=== PATIENT | male | born 1940 | race Caucasian/White ===

== ENCOUNTER 2016-10-11 07:23 | Day surgery (SDC) | payer MEDICARE, BC ==
[2016-10-11] MEDS ORDERED: GLUCOPHAGE1000 MG PO (09:05)
[2016-10-11] MEDS ORDERED: PRAVACHOL40 MG PO (09:06)
[2016-10-11] MEDS ORDERED: HCTZ25 MG PO (09:06)
[2016-10-11] MEDS ORDERED: METOPROLOL TART50 MG PO (09:06)
[2016-10-11] MEDS ORDERED: COUMADIN5 MG PO (09:07)
[2016-10-11] MEDS ORDERED: ULTRAM50 MG PO (09:07)
[2016-10-11] MEDS ORDERED: STOOL SOFTENER100 M1 PO (09:08)
[2016-10-11] MEDS ORDERED: FISH OIL 1,0001 CA1 PO (09:08)
[2016-10-11] MEDS ORDERED: VITAMIN B-121000 MCG PO (09:09)
[2016-10-11 09:46] LABS: BASOPHILS 0.3 % (0-2); EOSINOPHILS 2.1 % (0-7); HEMATOCRIT 20.2 % (42.0-54.0); IMMATURE GRANULOCYTES 0.3 % (0-5); LYMPHOCYTES 58.6 % (15-50); MCHC 32.7 g/dL (31.0-37.0); MCV 94.8 fL (80.0-100.0); MEAN PLATELET VOLUME 12.9 fL (7.4-10.4); MONOCYTES 16.4 % (2-11); NEUTROPHILS 22.3 % (40-80); PLATELET COUNT 197 10x3/uL (130-400); RBC 2.13 10x6/uL (4.20-6.10); RDW 19.8 % (11.5-14.5); WBC 11.5 10x3/uL (4.8-10.8)
[2016-10-11 10:03] LABS: CALC OSMOLALITY 280 mosm/kg (275-300); CALCIUM 8.2 mg/dL (8.5-10.1); CARBON DIOXIDE 31.1 mmol/L (21.0-32.0); CHLORIDE - SERUM 103 mmol/L (98-107); CREATININE - SERUM 0.8 mg/dL (0.6-1.3); GLUCOSE 93 mg/dL (74-106); POTASSIUM - SERUM 4.6 mmol/L (3.5-5.1); SODIUM 139 mmol/L (136-145); UREA NITROGEN 20 mg/dL (7-18); eGFR NON AFRICAN AMERICAN > 90 mL/min (90-120)
[2016-10-11 10:11] LABS: HEMOGLOBIN 6.6 g/dL (13.5-17.5)
--- NOTE | 2016-10-12 16:20 | OP ---
PATIENT NAME: LIAM TOMAS MEDICAL RECORD: [id number] :40 LOCATION:[facility] ADMISSION DATE: SURGEON: ZHEN LOPEZ DO DATE OF OPERATION: 10/11/2016 PROCEDURE: EGD. INDICATIONS FOR PROCEDURE: Anemia with a history of gastric and duodenal AVMs as well as a history of chronic lymphocytic leukemia. SCOPE: Olympus video gastroscope. MEDICATIONS: Propofol 150 mg IV per anesthesia. ESTIMATED BLOOD LOSS: None. COMPLICATIONS: None. FINDINGS: Informed consent was given. The patient was made comfortable with the above medication. After reaching an adequate level of sedation by slow IV push, the patient was placed on his left side. The endoscope was advanced under direct visualization through the mouth to the third portion of the duodenum. The upper, middle, and lower thirds of the esophagus appeared normal. At the GE junction, there was mild LA class A reflux-induced esophagitis. The endoscope was advanced beyond the GE junction into the stomach and retroflexed to view the cardia, where a small sliding hiatal hernia was present. In the fundus and body of the stomach, there were a few benign appearing fundic gland type polyps. The antrum and prepyloric region of the stomach appeared normal, without evidence of AVMs, ulcers, or other abnormalities. The endoscope was advanced beyond the pylorus into the duodenum where the bulb, first portion, second portion, and third portion appeared normal. The scope was withdrawn from the patient. The patient tolerated the procedure well and there were no complications. IMPRESSION: 1. LA class A reflux-induced esophagitis. 2. Small sliding hiatal hernia. 3. Benign appearing fundic gland type gastric polyps. PLAN AND RECOMMENDATIONS: 1. Discharge home when recovery parameters are met. 2. Continue current diet. 3. Continue current medications. 4. If bleeding from the digestive tract is the continued concern, consider repeating colonoscopy and consider small bowel follow-through/video capsule endoscopy. 5. Follow up with Dr. See with oncology for further management of chronic lymphocytic leukemia. TRANSINT:[id number] Voice Confirmation ID: [id number] DOCUMENT ID: [id number] OPERATIVE REPORT [id number] LIAM TOMAS ZHEN LOPEZ DO at 1620 CC: [id number] DICTATION DATE: 10/11/16 1030 CERTIFIED PHYSICIAN'S ASSISTANT: 10/11/16 1629 [facility] [place] 10/11/16 [facility] [address] [id number]
== END 2016-10-11 11:10 | disposition home or self-care (01) ==
LOC: D.OPS 07:23
PROVIDERS: Anesthesiology
DX: K21.0 Gastro-esophageal reflux disease with esophagitis (principal); K44.9 Diaphragmatic hernia without obstruction or gangrene; K31.7 Polyp of stomach and duodenum; D64.9 Anemia, unspecified; C91.10 Chronic lymphocytic leukemia of B-cell type not having achieved remission; Z01.812 Encounter for preprocedural laboratory examination